=== PATIENT | male | born 1965 | race African-American/Black ===

== ENCOUNTER 2017-10-05 16:39 | Emergency (ER) | payer OTHER ==
[~2017-10-05] VITALS: Ht 182.9 cm; Wt 97.5 kg
[2017-10-05 16:52] VITALS: BP 127/80
[2017-10-05] MEDS ORDERED: LOSARTAN POTASS25 MG ORAL (16:57)
[2017-10-05] MEDS ORDERED: HYDROCHLOROTH12.5 M2 ORAL (16:57)
[2017-10-05] MEDS ORDERED: ATORVASTATIN CA20 MG ORAL (16:57)
[2017-10-05] MEDS ORDERED: Tetanus/Diptheria/Pertussis Vaccine 0.5ml Syr IM ONE (17:15)
--- NOTE | 2017-10-05 17:18 | Emergency Room Report ---
History of Present Illness General Chief Complaint: General Complaint Source: Patient Present Illness HPI Patient is a 52-year-old male with no significant past medical history here after human bite at work 1 day. The bite is located on the right side of her thorax near distal right clavicle. It is very superficial with no puncture noted. Does not elicit any pain or tingling or difficulty with range of motion. 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 According to the patient's providing only lasted for a few seconds. Patient unsure of the status of immunization himself and also the person bit him denies pus drainage, fever, chills, SOB, chest pain, palpitation and all other review of systems. Allergies: Coded Allergies: AVOCADO (Verified Allergy, Unknown, 10/05/17) Patient History Past Medical History: see triage record Immunizations: other - tetanus shot to be given today Reviewed Nursing Documentation: PMH: Agreed; PSxH: Agreed Nursing Documentation-PMH Past Medical History: No History, Except For Hx Hypertension: Yes Review of Systems All Other Systems: negative except mentioned in HPI Physical Exam Vital Signs Date Time Temp Pulse Resp B/P (MAP) Pulse Ox O2 Delivery O2 Flow Rate FiO2 10/05/17 16:52 14 127/80 98 Room Air 10/05/17 16:52 98.0 73 98.1 Sp02 EP Interpretation: reviewed, normal General Appearance: normal inspection, well appearing, no apparent distress Head: normocephalic Eyes: bilateral eye normal inspection, bilateral eye PERRL ENT: normal ENT inspection Neck: normal inspection, full range of motion, supple Respiratory: normal inspection, no rhonchi, no respiratory distress, no wheezing Cardiovascular #1: normal inspection, no edema, no murmur Gastrointestinal: normal inspection, soft Rectal: deferred Genitourinary: deferred Musculoskeletal: other - no erythema post human bite on right upper thorax near the right clavicle Neurologic: normal inspection, alert, oriented x3, responsive Psychiatric: normal inspection, judgement/insight normal Skin: rash - Minimal erythema with no puncture after human bite on the right upper thorax near right clavicle Lymphatic: normal inspection, no adenopathy Medical Decision Making PA Attestation Final diagnosis and treatment plans were reviewed with my supervising physician Dr. Estrella Diagnostic Impression: Primary Impression: Human bite ER Course Patient is a 52-year-old male with no significant past medical history here after human bite at work 1 day. The bite is located on the right side of her thorax near distal right clavicle. It is very superficial with no puncture noted. Does not elicit any pain or tingling or difficulty with range of motion. 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 According to the patient's providing only lasted for a few seconds. Patient unsure of the status of immunization himself and also the person bit him denies pus drainage, fever, chills, SOB, chest pain, palpitation and all other review of systems. Ddx considered but are not limited to deep human bites with puncture, superficial human bite with no puncture Vital signs: are WNL, pt. is afebrile H&PE are most consistent with superficial human bite with no puncture ORDERS: tdap, Keflex, Bactroban ED INTERVENTIONS: tdap DISCHARGE: At this time pt. is stable for d/c to home. Will provide printed patient care instructions, and any necessary prescriptions. Care plan and follow up instructions have been discussed with the patient prior to discharge. avoid lifting heavy objects with the affected side, if fever chills return to the emergency Last Vital Signs Date Time Temp Pulse Resp B/P (MAP) Pulse Ox O2 Delivery O2 Flow Rate FiO2 10/05/17 16:52 98.0 73 14 127/80 98 Room Air 98.1 Disposition: HOME, SELF-CARE Condition: Stable Referrals: NON PHYSICIAN (PCP) Patient Instructions: Human Bite, [id number] Additional Instructions: take medication as direct as, avoid strenuous activity on the affected side, a fever/chills return to the emergency room Ashly Hawley Oct 05, 2017 17:18
[2017-10-05] MEDS ORDERED: BACTROBAN15 GM TOPIC (17:19)
[2017-10-05] MEDS ORDERED: CEPHALEXIN500 MG ORAL (17:19)
[2017-10-05 17:25] VITALS: BP 127/80
== END 2017-10-05 17:25 | disposition home or self-care (01) ==
LOC: EMR 17:08
DX: S20.371A Other superficial bite of right front wall of thorax, initial encounter (principal); W50.3XXA Accidental bite by another person, initial encounter; Y93.F9 Activity, other caregiving; Y92.89 Other specified places as the place of occurrence of the external cause; Y99.0 Civilian activity done for income or pay; Z23 Encounter for immunization
CPT/HCPCS: 90471; 90715; 99283